=== PATIENT | female | born 1980 | race American Indian/Alaskan Native ===

== ENCOUNTER 2018-01-31 06:48 | Emergency (ER) | payer SELFPAY ==
[2018-01-31 06:55] VITALS: BP 120/70
[2018-01-31] MEDS ORDERED: TORADOL IM ONE (09:50)
--- NOTE | 2018-01-31 09:58 | Emergency Department Report ---
ED Extremity Problem HPI - General Chief complaint: Extremity Injury, Lower Stated complaint: R FOOT PAIN Time Seen by Provider: 01/31/18 09:45 Source: patient Mode of arrival: Ambulatory Limitations: No Limitations - History of Present Illness Initial comments: 37-year-old female with no specific past medical history presents to the hospital complains of left heel pain since yesterday. Yesterday patient jumped into a 5 foot pool assuming it was 8 feet. Struck her left heel. She complains of 8/10 constant throbbing pain worsen movement and palpation. No alleviating factors. No other injury reported. - Related Data Previous Rx's Medication Instructions Recorded Last Taken Type Ibuprofen [Motrin] 800 mg PO Q8HR PRN #30 tablet 01/31/18 Unknown Rx Allergies Allergy/AdvReac Type Severity Reaction Status Date / Time No Known Allergies Allergy Unverified 01/31/18 07:03 ED Review of Systems ROS: Stated complaint: R FOOT PAIN Other details as noted in HPI Comment: All other systems reviewed and negative ED Past Medical Hx - Past Medical History Previous Medical History?: No - Surgical History Additional Surgical History: c section - Social History Smoking Status: Former Smoker Substance Use Type: None - Medications Home Medications: Home Medications Medication Instructions Recorded Confirmed Last Taken Type Ibuprofen [Motrin] 800 mg PO Q8HR PRN #30 tablet 01/31/18 Unknown Rx ED Physical Exam - General Limitations: No Limitations - Other Other exam information: General: No limitations, patient is alert in no acute distress Head exam: Atraumatic, normocephalic Eyes exam: Normal appearance ENT: Moist mucous membrane Neck exam: Normal inspection, full range of motion Respiratory exam: Clear to auscultation bilateral, no wheezes, rales, crackles Cardiovascular: Normal rate and rhythm, normal heart sounds Abdomen: Soft, nondistended, and nontender, with normal bowel sounds, no rebound, or guarding Extremity: Full range of motion, mild swelling to left heel. Tenderness to mid heel extending to the proximal third of the foot. Able to bear partial weight. No malleoli tenderness. 2+ DP pulse Back: Normal Inspection, full range of motion, no tenderness Neurologic: Alert, oriented x3, cranial nerves intact, no motor or sensory deficit Psychiatric: normal affect, normal mood Skin: Warm, dry, intact ED Course Vital Signs 01/31/18 06:50 Temperature 98.6 F Pulse Rate 90 Respiratory 18 Rate Blood Pressure 120/70 O2 Sat by Pulse 100 Oximetry - Reevaluation(s) Reevaluation #1: 01/31/18 09:55 Toradol in the ED ED Medical Decision Making - Radiology Data Radiology results: report reviewed left foot x-ray read by radiologist: No acute abnormality - Medical Decision Making Patient was treated for left foot contusion. Remarkable x-ray. Toradol in the ED. Home on Motrin and follow-up - Differential Diagnosis fracture, contusion, sprain Critical Care Time: No Critical care attestation.: If time is entered above; I have spent that time in minutes in the direct care of this critically ill patient, excluding procedure time. ED Disposition Clinical Impression: Contusion of foot, left Disposition: TO HOME OR SELFCARE Is pt being admited?: No Does the pt Need Aspirin: No Condition: Stable Instructions: Foot Contusion (ED) Additional Instructions: Take the medication as prescribed. Follow with primary care doctor or orthopedic doctor provided with the doctor of your choice. Return if symptoms worsen as indicated by your discharge instructions Prescriptions: Ibuprofen [Motrin] 800 mg PO Q8HR PRN #30 tablet PRN Reason: Pain Referrals: PRIMARY CARE, [Primary Care Provider] - 3-5 Days LESTER KIMBLE MD [Staff Physician] - 3-5 Days MONSERRAT LOPEZ MD [Staff Physician] - 3-5 Days Time of Disposition: 09:57
--- NOTE | 2018-02-03 14:24 | XRay Report ---
FINAL REPORT PROCEDURE: XR FOOT 2V LT TECHNIQUE: LEFT foot radiographs, AP and lateral views. HISTORY: pain, injury COMPARISON: No prior studies are available for comparison. FINDINGS: Fracture (s) and/or Dislocation(s): None . Alignment: Normal. Joint space(s): Normal. Soft tissues: Normal. Bone mineralization: Normal. Foreign bodies: None. Calcaneal spurring: There is a small inferior calcaneal spur. IMPRESSION: There is no acute bony or soft tissue abnormality.
== END 2018-01-31 10:13 | disposition home or self-care (01) ==
LOC: ED 06:48
DX: S90.32XA Contusion of left foot, initial encounter (principal); Z87.891 Personal history of nicotine dependence; W16.522A Jumping or diving into swimming pool striking bottom causing other injury, initial encounter; Y93.39 Activity, other involving climbing, rappelling and jumping off; Y99.8 Other external cause status; Y92.34 Swimming pool (public) as the place of occurrence of the external cause
CPT/HCPCS: 73620; 96372; 99283; J1885

== ENCOUNTER 2019-04-27 09:07 | Outpatient (CLI) | payer BC ==
--- NOTE | 2019-04-27 10:08 | XRay Report ---
LUMBAR SPINE 5 VIEWS INDICATION: M51.26) HERNIATED LUMBAR INTERVERTEBRAL DISC COMPARISON: None. FINDINGS: There is discogenic degenerative change at L5-S1 and to a lesser degree at L4-5 area there is disc sp chika narrowing. There are small anterior and posterior osteophytes at L5-S1. No fracture or subluxation is seen. Pedicles appear intact. Signer Name: Marcelino Johnson MD Signed: 04/27/2019 10:04 AM Workstation Name: [id number]
== END 2019-04-27 09:08 | disposition home or self-care (01) ==
LOC: XRAY 09:07
DX: M47.817 Spondylosis without myelopathy or radiculopathy, lumbosacral region (principal); M48.061 Spinal stenosis, lumbar region without neurogenic claudication; M25.78 Osteophyte, vertebrae
CPT/HCPCS: 72110

== ENCOUNTER 2019-04-29 14:32 | Outpatient (CLI) | payer BC ==
--- NOTE | 2019-04-29 16:15 | Magnetic Resonance Report ---
MRI LUMBAR SPINE WITHOUT CONTRAST INDICATION / CLINICAL INFORMATION: M51.26) HERNIATED LUMBAR INTERVERTEBRAL DISC. TECHNIQUE: Multisequence, multiplanar images of the lumbar spine were obtained. COMPARISON: None available. FINDINGS: ALIGNMENT: Normal lumbar lordosis without significant scoliosis. VERTEBRAE:Normal marrow signal and vertebral body height for age. VISUALIZED SPINAL CORD: No significant abnormality. [id number] ANALYSIS: L1-2: No significant abnormality. L2-3: No significant abnormality. L3-4: No significant abnormality. L4-5: There is a focal central disc extrusion with inferior migration resulting in moderate central c anal stenosis. There is no neural foraminal narrowing. L5-S1: There is degenerative disc disease with disc height loss and Modic type II fat changes in the vertebral endplates. The endplate osteophytes result in mild central canal stenosis and mild bilatera l neural foraminal narrowing. PARASPINAL SOFT TISSUES: No significant abnormality. ADDITIONAL FINDINGS: None. IMPRESSION: 1. Disc extrusion with mild inferior migration at L4-5 causing moderate central canal stenosis. 2. Degenerative disc disease with endplate osteophytes at L5-S1 resulting in mild central canal sten osis and mild bilateral neural foraminal narrowing. Signer Name: Olu Lopez MD Signed: 04/29/2019 4:11 PM Workstation Name: [id number]
== END 2019-04-29 14:33 | disposition home or self-care (01) ==
LOC: MRI 14:32
DX: M48.061 Spinal stenosis, lumbar region without neurogenic claudication (principal); M51.37 Other intervertebral disc degeneration, lumbosacral region
CPT/HCPCS: 72148

== ENCOUNTER 2020-02-05 13:10 | Outpatient (CLI) | payer BC ==
[2020-02-05 14:46] LABS: Blood Urea Nitrogen 10 mg/dL (7-17)
--- NOTE | 2020-02-05 16:22 | Cat Scan Report ---
CT ANGIOGRAPHY OF THE CHEST WITH INTRAVENOUS CONTRAST AND MULTIPLANAR MIP RECONSTRUCTIONS INDICATION / CLINICAL INFORMATION: Other forms of dyspnea R06.09; rule out PTE. TECHNIQUE: Axial CT images were obtained after injection of 100 cc Omnipaque 300 IV contrast using CTA protocol. 3 plane MIP / 3D reconstructions were produced. All CT scans at this location are performed using CT dose reduction for ALARA by means of automated exposure control. COMPARISON: None available. FINDINGS: There is good opacification of the pulmonary arterial system bilaterally without intraluminal filling defect to suggest acute PTE. The thoracic aorta is normal in caliber without dissection. The visuali zed coronary vessels are unremarkable. The tracheobronchial tree is normal. The lung parenchyma is clear. There is no evidence of adenopathy or effusion. The visualized upper abdomen is normal. No osseous abnormality is seen. IMPRESSION: No evidence of acute PTE or other significant abnormality. Signer Name: Kirby Mendoza MD Signed: 02/05/2020 4:18 PM Workstation Name: [id number]
--- NOTE | 2020-02-05 17:05 | Magnetic Resonance Report ---
MRI BRAIN WITHOUT CONTRAST INDICATION / CLINICAL INFORMATION: MAIN: Headache x 1 month. TECHNIQUE: Multiplanar, multisequence MR images of the brain were obtained. COMPARISON: None available. FINDINGS: BRAIN / INTRACRANIAL CONTENTS: The brain parenchyma appears to demonstrate appropriate signal charact eristics. The ventricular system is within normal limits in size and configuration. No extra-axial fl uid collections or significant mass effect is identified. The diffusion imaging reveals no evidence o f recent infarction. CRANIOCERVICAL JUNCTION: No significant abnormality. VASCULAR FLOW-VOIDS: No significant abnormality. ORBITS: No significant abnormality of visualized orbits. SINUSES / MASTOIDS: There is mild mucosal thickening with moderate air-fluid level along the posterio r right sphenoid sinus. Minimal mucosal thickening is noted within the maxillary sinuses and ethmoid air cells. ADDITIONAL FINDINGS: None. IMPRESSION: 1. There is sinus inflammatory disease as described with air-fluid level along the posterior right sp henoid sinus. 2. The MRI of the brain is unremarkable without evidence of acute intracranial process. Signer Name: Gagandeep Zavala MD Signed: 02/05/2020 5:01 PM Workstation Name: [id number]
== END 2020-02-05 13:11 | disposition home or self-care (01) ==
LOC: MRI 13:10
PROVIDERS: ATTEND Internal Medicine
DX: J98.4 Other disorders of lung (principal); R51 Headache; R06.09 Other forms of dyspnea
CPT/HCPCS: 36415; 70551; 71275; 82565; 84520; Q9967

== ENCOUNTER 2020-04-21 10:52 | Emergency (ER) | payer BC ==
[2020-04-21] MEDS ORDERED: ASPIRIN 325 MG TAB PO ONE (11:29)
[2020-04-21 11:53] LABS: Basophils # (Auto) 0.1 K/mm3 (0.0-0.1); Basophils % (Auto) 0.7 % (0.0-1.8); Eosinophils # (Auto) 0.2 K/mm3 (0.0-0.4); Eosinophils % (Auto) 1.7 % (0.0-4.3); Hematocrit 45.3 % (30.3-42.9); Hemoglobin 15.5 gm/dl (10.1-14.3); Lymphocytes # (Auto) 2.6 K/mm3 (1.2-5.4); Lymphocytes % (Auto) 28.4 % (13.4-35.0); Mean Corpuscular HGB Conc 34 % (30-34); Mean Corpuscular Volume 94 fl (79-97); Monocytes # (Auto) 0.6 K/mm3 (0.0-0.8); Monocytes % (Auto) 6.9 % (0.0-7.3); Platelet Count 333 K/mm3 (140-440); Red Blood Count 4.82 M/mm3 (3.65-5.03); Red Cell Distribution Width 13.2 % (13.2-15.2)
[2020-04-21 12:09] LABS: INR 0.84 (0.87-1.13)
[2020-04-21 12:10] LABS: Partial Thromboplastin Time 26.9 Sec. (24.2-36.6)
[2020-04-21 12:18] LABS: Alanine Aminotransferase 16 units/L (7-56); Albumin 4.7 g/dL (3.9-5); Blood Urea Nitrogen 11 mg/dL (7-17); Calcium 9.3 mg/dL (8.4-10.2); Hemolysis Index 7
[2020-04-21 12:24] LABS: BUN/Creatinine Ratio 16; Bilirubin,Direct < 0.2 mg/dL (0-0.2)
--- NOTE | 2020-04-21 12:44 | XRay Report ---
CHEST 1 VIEW 04/21/2020 11:36 AM INDICATION / CLINICAL INFORMATION: Chest Pain. COMPARISON: CT dated 02/05/20 FINDINGS: SUPPORT DEVICES: None. HEART / MEDIASTINUM: No significant abnormality. LUNGS / PLEURA: No significant pulmonary or pleural abnormality. No pneumothorax. ADDITIONAL FINDINGS: No significant additional findings. IMPRESSION: 1. No acute findings. Signer Name: Katerina Spear MD Signed: 04/21/2020 12:40 PM Workstation Name: [id number]
--- NOTE | 2020-04-21 13:21 | Emergency Department Report ---
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 She tells me that she is actually has been having exertional chest pain for a few weeks. She does not have a history of prior cardiac work-up. She states that she has been doing a lot of outside [employer] type work and th is is a precipitant. Sometimes she gets pain at rest as well. Today she had central chest pressure which was nonpleuritic and nonradiating. Incidentally she had a CT angiogram in February 2020 which was ordered on the basis of a positive COVID test. She did not have chest pain which was similar at that time. The CT angiogram was negative. In any case today while she was at work she had an episode of chest pain which was more persistent. It was associated with some nausea and some shortness of breath. She did note that her heartrate was a bit tachycardic. She did tell me she has some dizziness. At the time of my encounter, her chest pain has improved. Her other symptoms have resolved. She is already expressing a desire not to be admitted to the hospital. As above she has had no prior stress testing. She states that she does still smoke. He states that her mother had atrial fibrillation but no known history of coronary artery disease. She does not take a control pill. She has no history of venous thromboembolism. MD Complaint: chest pain -: Gradual, week(s) Onset: during rest, during exertion Pain Location: substernal Pain Radiation: none Severity: moderate Consistency: intermittent Improves With: nothing Worsens With: nothing re: nausea, dyspnea, other (dizziness) Other Symptoms: denies: cough, fever, syncope Treatments Prior to Arrival: none Aspirin use within the Past 7 Days: (0) No - Related Data Previous Rx's Medication Instructions Recorded Last Taken Type Ibuprofen [Motrin] 800 mg PO Q8HR PRN #30 tablet 01/31/18 Unknown Rx Allergies Allergy/AdvReac Type Severity Reaction Status Date / Time No Known Allergies Allergy Unverified 01/31/18 07:03 Heart Score - HEART Score History: Highly suspicious EKG: Non-specific Age: < 45 Risk factors: 1-2 risk factors Troponin: < normal limit HEART Score: 4 - Critical Actions Critical Actions: 4-6 pts:12-16.6% risk of adverse cardiac event. Should be admitted ED Review of Systems ROS: Stated complaint: CP , SOB Other details as noted in HPI Constitutional: denies: chills, fever Eyes: denies: eye pain, eye discharge, vision change ENT: denies: ear pain, throat pain Respiratory: see HPI, shortness of breath. denies: cough, wheezing Cardiovascular: as per HPI, chest pain. denies: palpitations Endocrine: no symptoms reported Gastrointestinal: as per HPI, nausea. denies: abdominal pain, vomiting, diarrhea Genitourinary: denies: urgency, dysuria, discharge Musculoskeletal: denies: back pain, joint swelling, arthralgia Skin: denies: rash, lesions Neurological: denies: headache, weakness, paresthesias Psychiatric: denies: anxiety, depression Hematological/Lymphatic: denies: easy bleeding, easy bruising ED Past Medical Hx - Past Medical History Previous Medical History?: Yes Additional medical history: ADD - Surgical History Past Surgical History?: Yes Additional Surgical History: c section. back surgery - Social History Smoking Status: Current Every Day Smoker Substance Use Type: None - Medications Home Medications: Home Medications Medication Instructions Recorded Confirmed Last Taken Type Ibuprofen [Motrin] 800 mg PO Q8HR PRN #30 tablet 01/31/18 Unknown Rx ED Physical Exam - General Limitations: No Limitations General appearance: alert, in no apparent distress - Head Head exam: Present: atraumatic, normocephalic - Eye Eye exam: Present: normal appearance. Absent: scleral icterus - ENT ENT exam: Present: mucous membranes moist - Neck Neck exam: Present: normal inspection - Respiratory Respiratory exam: Present: normal lung sounds bilaterally. Absent: respiratory distress - Cardiovascular Cardiovascular Exam: Present: regular rate, normal rhythm. Absent: systolic mur mur, diastolic murmur, rubs, gallop - GI/Abdominal GI/Abdominal exam: Present: soft, normal bowel sounds. Absent: distended, tenderness, guarding, rebound - Extremities Exam Extremities exam: Present: normal inspection. Absent: pedal edema, joint swelling, calf tenderness - Back Exam Back exam: Present: normal inspection - Neurological Exam Neurological exam: Present: alert, oriented X3, CN II-XII intact. Absent: motor sensory deficit - Psychiatric Psychiatric exam: Present: normal affect, normal mood - Skin Skin exam: Present: warm, dry, intact, normal color. Absent: rash ED Course Vital Signs 04/21/20 04/21/20 11:02 11:46 Temperature 98.0 F Pulse Rate 87 78 Respiratory 18 12 Rate Blood Pressure 133/77 127/49 O2 Sat by Pulse 97 100 Oximetry - Reevaluation(s) Reevaluation #1: Did discuss the limitations of emergency department work-up. After the the second troponin, I will send should be an endpoint. Patient does understand this. I have strongly advised her to be admitted to the hospital. She declines. She states that she understands the risks which include or disability. I communicated with the occupational health and safety officer on-call, Dr. Infante. He was very kind to agree to set the patient up for an outpatient stress test. I am going to give her this information. Again she has been strongly advised not to seek outpatient evaluation but this is the only option available at this point because she does decline admission. She will be started on aspirin. She will be advised to return to the emergency department for recurrent symptoms. 04/21/20 13:37 GÓMEZ score - Gómez Score Age > 65: (0) No Aspirin use within the Past 7 Days: (0) No 3 or more CAD Risk Factors: (0) No 2 or more Angina events in past 24 hrs: (0) No Known CAD with more than 50% Stenosis: (0) No Elevated Cardiac Markers: (0) No ST Deviation Greater than 0.5mm: (0) No GÓMEZ Score: 0 ED Medical Decision Making - Lab Data Result diagrams: 04/21/20 11:37 04/21/20 11:37 Laboratory Results - last 24 hr 04/21/20 04/21/20 04/21/20 11:37 11:37 11:37 WBC 9.2 RBC 4.82 Hgb 15.5 H Hct 45.3 H MCV 94 MCH 32 MCHC 34 RDW 13.2 Plt Count 333 Lymph % (Auto) 28.4 Converse % (Auto) 6.9 Eos % (Auto) 1.7 Baso % (Auto) 0.7 Lymph # 2.6 [place]verse # 0.6 Eos # 0.2 Baso # 0.1 Seg Neutrophils % 62.3 Seg Neutrophils # 5.7 PT 11.7 L INR 0.84 L APTT 26.9 D-Dimer 219.12 Sodium 138 Potassium 4.3 Chloride 100.8 Carbon Dioxide 22 Anion Gap 20 BUN 11 Creatinine 0.7 Estimated GFR > 60 BUN/Creatinine Ratio 16 Glucose 100 Calcium 9.3 Total Bilirubin 0.40 Direct Bilirubin < 0.2 AST 20 ALT 16 Alkaline Phosphatase 79 Troponin T < 0.010 NT-Pro-B Natriuret Pep 58.09 Total Protein 7.9 Albumin 4.7 Albumin/Globulin Ratio 1.5 - EKG Data -: EKG Interpreted by Me EKG shows normal: sinus rhythm, axis, intervals, QRS complexes, ST-T waves Rate: normal - EKG Data Interpretation: other (Occasional ectopic beat. No evidence of acute ischemia.) - Radiology Data Radiology results: image reviewed (No acute process) Critical care attestation.: If time is entered above; I have spent that time in minutes in the direct care of this critically ill patient, excluding procedure time. ED Disposition Clinical Impression: Chest pain Qualifiers: Chest pain type: unspecified Qualified Code(s): R07.9 - Chest pain, unspecified Disposition: DC-01 TO HOME OR SELFCARE Is pt being admited?: No Does the pt Need Aspirin: No Condition: Stable Instructions: Chest Pain (ED) Additional Instructions: Outpatient work-up with occupational health and safety officer. Call 's office. He stated that he can do an outpatient stress test on Saturday. As you know I do not recommend that you wait this long and that admission was recommended. 1 aspirin daily. Return to the emergency department any recurrent chest pain is definitely recom mended. Referrals: FANNY NELSON MD [Primary Care Provider] - 3-5 Days WOLFGANG INFANTE MD [Staff Physician] - 3-5 Days Time of Disposition: 13:41
[2020-04-21 17:56] VITALS: BP 125/62
== END 2020-04-21 15:22 | disposition home or self-care (01) ==
LOC: ED 10:52
DX: R07.9 Chest pain, unspecified (principal); F17.200 Nicotine dependence, unspecified, uncomplicated; Z98.890 Other specified postprocedural states; Z79.899 Other long term (current) drug therapy
CPT/HCPCS: 36415; 71045; 80048; 80076; 83880; 84484; 85025; 85379; 85610; 85730; 93005